=== PATIENT | male | born 1965 | race Two or more races ===

== ENCOUNTER 2024-07-19 09:42 | Emergency (ER) | payer MEDICAID, SELFPAY ==
[2024-07-19 09:45] VITALS: BP 130/85; PULSE 96; RESP 16; TEMP 36.3; O2SAT 96; BMI 22.6
--- NOTE | 2024-07-19 09:49 | PC.NURSE ---
PT ARRIVED AT 0945 BY POLICE FOR LONG-TERM CHECK. PT STATES FELL LAST NIGHT AND HIT RIGHT SIDE HEAD. UNABLE TO STATE IF LOC HAPPENED. PT DOES STATE I WENT TO [place] AND TO SLEEP. ADMITS TO DRINKING ETOH PRIOR TO FALL. PT WITH DRIED BLOOD COVERING RIGHT SIDE HEAD AND FACE AND UNABLE TO DETERMINE WOUNDS AT THIS TIME. WILL CLEAN FACE AND REASSESS
--- NOTE | 2024-07-19 10:13 | PD.EDADULT ---
ED General RME/HPI General Chief complaint: Head Injury Stated complaint: FALL HEIT HEAD LAST NIGHT,ALF CHECK Arrival date/time: 07/19/24 09:42 Limitations: no limitations RME / HPI RME / HPI narrative: DR. FREEDMAN MAIN ED EVALUATION: 59 year old male presents to the Emergency Department brought in by police with complaints of a fall yesterday evening at 10 PM, drunk, and hit his head. He was in the streets and slept on the streets all night. He has abrasions to his face, on his right forehead, right cheek, and nose. PMHx: Hepatitis C, no treatment. Social Hx: Marijuana use Related Data Previous Rx's ?Medication ?Instructions ?Recorded naloxone 4 mg/actuation nasal 4 mg intranasal Q2M PRN opioid 10/07/21 spray (Narcan) overdose #2 ea Allergies Allergy/AdvReac Type Severity Reaction Status Date / Time No Known Allergies Allergy Unverified 07/19/24 09:56 Review of Systems Review of Systems Systems Reviewed: All systems reviewed, normal except as documented Past Medical History Past Medical History OTHER HISTORY: Positive Human Immunodeficiency Virus (HIV) Social History SMOKING STATUS: Current every day smoker SUBSTANCE USE: marijuana ALCOHOL: Never ED Exam General Limitations: Present no limitations General appearance: Present alert and in no apparent distress Expanded Head Exam Head image:  1. Right forehead abrasion 2. Right forehead abrasion and contusions 3. Right cheek abrasion, right under the right eye 4. Nose abrasion 5. Right cheek abrasion and contusion Eye Eye exam: Present normal appearance, PERRL and EOMI ENT ENT exam: Present normal exam, normal oropharynx and mucous membranes moist Neck Neck exam: Present normal inspection, full ROM and trachea midline Chest Chest inspection: Present normal inspection and symmetric chest wall rise Respiratory Respiratory exam: Present normal lung sounds bilaterally Cardiovascular Cardiovascular exam: Present regular rate, normal rhythm and normal heart sounds Abdominal Exam Abdominal exam: Present soft and normal bowel sounds Extremities Exam Extremities exam: Present normal inspection and full ROM Back Exam Back exam: Present normal inspection and full ROM Neurological Exam Neurological exam: Present alert, oriented X3 and CN II-XII intact Psychiatric Psychiatric exam: Present normal affect and normal mood Skin Skin exam: Present warm, dry, intact and normal color Course Quality Measures none Orders Category Date Time Status CT head/brain wo con Stat Exams 07/19/24 10:44 Completed Ketorolac Inj [Toradol Inj] Med 07/19/24 10:45 Discontinued 30 mg IM X1 ONE Vital Signs Vital signs: Vital Signs Temperature 97.4 F 07/19/24 09:45 Pulse Rate 96 07/19/24 09:45 Respiratory Rate 16 07/19/24 09:45 Blood Pressure 130/85 H 07/19/24 09:45 Pulse Oximetry (%) 96 07/19/24 09:45 Oxygen Delivery Method Room Air 07/19/24 09:45 Discharge Plan Plan Patient Disposition: HOME (Self Care) Patient condition on transfer: Stable Prescriptions/Referrals Prescriptions/Med Rec: No Action naloxone [Narcan] 4 mg/actuation spray,non-aerosol 4 mg intranasal Q2M PRN (Reason: opioid overdose) Qty: 2 1RF Rx Instructions: spray 1 dose into ONE nostril; alternate nostrils w each dose until help arrives Referrals: No Primary/Family,Physician [Primary Care Provider] - In 1 week Problem List Clinical Impression: Closed head injury, Facial contusion, Abrasion of face Patient/Caregiver Discharge Instructions Education Materials: ED Abrasions, ED Facial Contusion, ED Head Injury (Adult) Additional Instructions: Take Tylenol 500 mg 2 tabs every 6 hours as needed for pain PLUS Advil 200 mg gel 2 tablets as needed for pain. Please follow-up with your primary care physician within a week. Return to the Emergency Department as needed. Print Language: Japanese Stand Alone Forms: Traci Award Info., Patient Portal Info Letter MDM Narrative [facility] hospital course: I, Charis Elena am scribing for and in the presence of Dr. Freedman. Clinical Information Provided by patient and law enforcement Medical Records Reviewed [facility] Meds/Rx Considered, not Ordered None Labs/Rad/Tests considered, not Ordered None Chronic Illness/Social Conditions which may negatively complicate care or outcome(s)-explain: Homeless Add or document further as needed: PMHx: Hepatitis C, no treatment. Social Hx: Marijuana use Imaging Radiology reports / interpretation(s): Procedure(s): CT head/brain wo con Accession Number(s): [id number] cc: Milton Freedman MD; Alexandre Arenas MD; NO PRIMARY/FAMILY,PHYSICIAN~ Examination: CT brain head without contrast. 2-D sagittal coronal reconstructions Date and time of exam:July 19, 2024 1144 hours INDICATIONS: Patient fell today with injury to head, head pain CTDI: vol (mGy):48.3 DLP: (mGycm):980 Technique: Multiple CT axial sections of the brain have been obtained, 5 mm slice thickness. Contrast has not been administered. 2-D sagittal, coronal reconstructions have been obtained Low dose protocols were performed. One or more of the following dose reduction techniques were used; automated exposure control, adjustment of the mA and/or KV according to patient size, use of iterative reconstruction technique. Findings: No significant ventricular enlargement. Intra-axial or extra-axial hemorrhage density is not seen. No mass effect or midline shift Basal cisterns are not remarkable. Fourth ventricle is midline. Cranial vault intact. Impression: Negative for acute hemorrhage, mass effect or midline shift Dictated By: Alexandre Arenas MD Medication Administration(s) Medication Administration History Discontinued Medications Ketorolac Tromethamine (Ketorolac Inj 60 Mg/2 Ml Vial) 30 mg IM X1 ONE Stop: 07/19/24 10:46 Last Admin: 07/19/24 10:52 Dose: 30 mg Documented By: [facility] Diagnosis Differential diagnosis: fall, abrasion, medical clearance Most likely dx, and/or detailed dx discussion: Closed head injury Facial contusions Facial abrasions Dispositon Disposition: Discharge Home
--- NOTE | 2024-07-19 10:44 | XR_ITS ---
Examination: CT brain head without contrast. 2-D sagittal coronal reconstructions Date and time of exam:July 19, 2024 1144 hours INDICATIONS: Patient fell today with injury to head, head pain CTDI: vol (mGy):48.3 DLP: (mGycm):980 Technique: Multiple CT axial sections of the brain have been obtained, 5 mm slice thickness. Contrast has not been administered. 2-D sagittal, coronal reconstructions have been obtained Low dose protocols were performed. One or more of the following dose reduction techniques were used; automated exposure control, adjustment of the mA and/or KV according to patient size, use of iterative reconstruction technique. Findings: No significant ventricular enlargement. Intra-axial or extra-axial hemorrhage density is not seen. No mass effect or midline shift Basal cisterns are not remarkable. Fourth ventricle is midline. Cranial vault intact. Impression: Negative for acute hemorrhage, mass effect or midline shift
[2024-07-19 10:45] VITALS: BP 129/80; PULSE 92; RESP 16; TEMP 36.6; O2SAT 98
--- NOTE | 2024-07-19 10:45 | PC.NURSE ---
PER OFFICER I AM CITING PT OUT SINCE HE'S BEING COOPERATIVE. PT'S WOUNDS CLEANED WITH NS. MULTIPLE AREAS OF ABRASIONS TO RIGHT SIDE FOREHEAD AND BRIDGE OF NOSE. DR. ROWE INFORMED
[2024-07-19] MEDS: KETOROLAC INJ 60 MG/2 ML VIAL 30 MG IM (10:52)
[2024-07-19 12:26] VITALS: BP 147/87; PULSE 70; RESP 18; TEMP 36.8; O2SAT 100
[2024-07-19 14:15] VITALS: BP 125/66; PULSE 74; RESP 18; TEMP 36.7; O2SAT 99
== END 2024-07-19 14:30 | disposition home or self-care (01) ==
PROVIDERS: Emergency Provider Family Medicine
DX: S00.83XA Contusion of other part of head, initial encounter (principal); S00.81XA Abrasion of other part of head, initial encounter; S00.31XA Abrasion of nose, initial encounter; S09.90XA Unspecified injury of head, initial encounter; W19.XXXA Unspecified fall, initial encounter
CPT/HCPCS: 70450; 96372; 99284; J1885